=== PATIENT | female | born 1990 | race Caucasian/White ===

== ENCOUNTER 2017-08-14 15:22 | Inpatient (IN) | payer MEDICAID ==
[~2017-08-14] VITALS: Ht 167.6 cm; Wt 75.4 kg
[2017-08-14 15:26] VITALS: BP 120/42
[2017-08-14] MEDS ORDERED: PREN-234 PO (15:31)
[2017-08-14 17:27] LABS: HEMATOCRIT 38.4 % (36-48); HEMOGLOBIN 13.5 g/dL (12.0-16.0); MEAN CORPUSCULAR HEMOGLOBIN 32 pg (27-31); MEAN CORPUSCULAR HGB CONC 35 g/dL (33-37); MEAN CORPUSCULAR VOLUME 90 fL (80-94); PLATELET COUNT (AUTO) 285 K/uL (140-450); RED BLOOD CELL COUNT(AUTO) 4.27 MIL/uL (4.20-5.40); RED CELL DISTRIBUTION WIDTH 12.9 % (11.6-13.7); WHITE BLOOD COUNT (AUTO) 16.2 K/uL (4.8-10.8)
[2017-08-14 17:32] LABS: APPEARANCE,URINE CLEAR (CLEAR); BILIRUBIN,URINE NEGATIVE (NEGATIVE); BLOOD, URINE NEGATIVE (NEGATIVE); COLOR,URINE YELLOW (YELLOW); LEUKOCYTE ESTERASE ,URINE TRACE (NEGATIVE); NITRITE, URINE NEGATIVE (NEGATIVE); UGLUCOSE NEGATIVE (NEGATIVE)
[2017-08-14 17:40] LABS: LYMPHOCYTES % (MANUAL) 6 % (20-46); MONOCYTES % (MANUAL) 6 % (5-12)
[2017-08-14 17:41] LABS: RBC,URINE 0-5 (RARE) /HPF (0-5); WBC,URINE 0-5 (RARE) /HPF (0-5)
[2017-08-14 17:41] LABS: ALBUMIN 3.4 g/dL (3.4-5.0); ANION GAP 13.5 (8-16); CARBON DIOXIDE 25.3 mmol/L (21-32); CREATININE 0.7 mg/dL (0.6-1.3); POTASSIUM 3.8 mmol/L (3.5-5.1); TOTAL BILIRUBIN 0.2 mg/dL (0.0-1.0)
--- NOTE | 2017-08-14 18:44 | NUR ---
PATIENT WAS TAKING TO BED 12
--- NOTE | 2017-08-14 19:00 | NUR ---
PATIENT IS A 26 Y/O FEMALE WHO PRESENTS TO THE ED C/O ABD PAIN. PT STATES, "I AM 13 WEEKS AND MY STOMACH HURTS." PT REPORTS SHARP ABD PAIN THAT DOES NOT RADIATE. PT DENIES CP, SOB, REPORTS NAUSEA/VOMITING DENIES DIARRHEA. PT AAOX4, RR EVEN/UNLABORED. PT REPOSITIONED FOR COMFORT, BED IN LOWEST POSITION. ER MD DR. HERNANDEZ NOTIFIED. WILL CONTINUE TO MONITOR.
--- NOTE | 2017-08-14 19:56 | NUR ---
Ultrasound at bedside.
[2017-08-14] MEDS ORDERED: ACETAMINOPHEN EXTRA STRENGTH 500 MG TAB PO ONE (21:05)
[2017-08-14] MEDS: NACL 0.9% 1,000 ML IV SCH (22:37)
[2017-08-14] MEDS ORDERED: ONDANSETRON 4 MG/2 ML VIAL IVP PRN (22:40)
[2017-08-14] MEDS ORDERED: metroNIDAZOLE 500 MG/NS PREMIX 100 ML IV ONE (22:40)
[2017-08-14] MEDS ORDERED: cefTRIAXone 1,000 MG VIAL ONE (22:51)
--- NOTE | 2017-08-14 23:27 | NUR ---
Patient will be admitted to care of DR. ESTRELLA. Admited to TELE. Will go to room 105B. Belongings list completed. Report to JUAN RAMON NGUYEN.
[2017-08-14 23:30] LABS: BARBITURATE, URINE NEG. ng/ml (NEG <=200); BENZODIAZEPINE, URINE NEG. ng/mL (NEG <=200); CANNABINOID, URINE NEG. ng/mL (NEG <=50); COCAINE, URINE NEG. ng/mL (NEG <=300); OPIATE, URINE NEG. ng/mL (NEG <=2000); PHENCYCLIDINE SCREEN,URINE NEG. ng/mL (NEG <=25)
[2017-08-14 23:32] LABS: PROTHROMBIN TIME 9.8 secs (10.8-13.4)
[2017-08-14 23:55] LABS: CHOL/HDL RATIO 2.7 (1-4.5); FREE T4 (FREE THYROXINE) 0.84 ng/dL (0.76-1.46); MAGNESIUM 1.8 mg/dL (1.8-2.4); PHOSPHORUS 3.9 mg/dL (2.5-4.9); THYROID STIMULATING HORMONE 9.99 uIU/mL (0.34-3.74)
[2017-08-15 01:39] VITALS: BP 108/60
[2017-08-15 04:00] VITALS: BP 103/56
[2017-08-15] MEDS: LEVOTHYROXINE 0.075 MG TAB PO SCH (06:30)
--- NOTE | 2017-08-15 06:46 | NUR ---
PATIENT HAD ON AND OFF PAIN ON RIGHT ABDOMEN DR INFORMED PATIENT IS NPO SHE SAID SHE WILL REVIEW , ZOFRAN 40 MG GIVEN IV FOR NAUSEA NOW SHE IS SETTLED AND SLEEPING.
--- NOTE | 2017-08-15 07:30 | NUR ---
RECEIVED PT IN BED, AWAKE, ALERT ORIENTEDX4. NO SOB NOTED. DR. GONSALVES FOR OB CONSULT WITH PT. PT AMBULATORY. SAFETY PRECAUTION IN PLACE. CALL LIGHT WITHIN REACH.
[2017-08-15 07:34] LABS: BASOPHILS # (AUTO) 0.2 K/uL (0.00-0.22); BASOPHILS % (AUTO) 1.6 % (0.0-2.0); EOSINOPHILS # (AUTO) 0.2 K/uL (0-0.4); EOSINOPHILS % (AUTO) 1.6 % (0.0-4.0); HEMATOCRIT 35.2 % (36-48); LYMPHOCYTES # (AUTO) 1.9 K/uL (2.5-16.5); MEAN CORPUSCULAR HEMOGLOBIN 31 pg (27-31); MEAN CORPUSCULAR HGB CONC 34 g/dL (33-37); MEAN CORPUSCULAR VOLUME 91 fL (80-94); MONOCYTES # (AUTO) 0.3 K/uL (0.8-1.0); MONOCYTES % (AUTO) 3.3 % (1.7-9.3); NEUTROPHILS # (AUTO) 6.9 K/uL (1.8-7.7); NEUTROPHILS % (AUTO) 73.5 % (42.2-75.2); PLATELET COUNT (AUTO) 241 K/uL (140-450); RED BLOOD CELL COUNT(AUTO) 3.88 MIL/uL (4.20-5.40); RED CELL DISTRIBUTION WIDTH 12.8 % (11.6-13.7); WHITE BLOOD COUNT (AUTO) 9.5 K/uL (4.8-10.8)
[2017-08-15 08:00] VITALS: BP 95/56
[2017-08-15 08:01] LABS: ANION GAP 13.4 (8-16); CARBON DIOXIDE 23.1 mmol/L (21-32); CREATININE 0.6 mg/dL (0.6-1.3); POTASSIUM 3.5 mmol/L (3.5-5.1)
[2017-08-15] MEDS: DOCUSATE SODIUM 100 MG GELCAP PO SCH ×2 (08:11→21:05)
[2017-08-15] MEDS: ACETAMINOPHEN 325 MG TAB PO PRN ×2 (08:11→20:58)
[2017-08-15 08:14] LABS: MAGNESIUM 1.8 mg/dL (1.8-2.4)
--- NOTE | 2017-08-15 09:34 | NUR ---
PATIENT HAS BEEN SCREENED AND CATEGORIZED MODERATE NUTRITION RISK. PATIENT WILL BE SEEN WITHIN 3-5 DAYS OF ADMISSION. 08/17/17-08/19/[address]
--- NOTE | 2017-08-15 09:42 | NUR ---
DR. STRATTON CAME TO SEE PT. PT VERBALIZED SHE STILL FEEL PAIN ON HER RIGHT LOWER ABDOMEN. PER DR. STRATTON, HER WBC WENT DOWN, AND SHE DOESN'T HAVE ANY FEVER ANYMORE. DR. STRATTON EXPLAINED TO PT HER OPTIONS, THAT IT IS STILL POSSIBLE THAT PT HAS APPENDICITIS BUT SINCE SHE IS WE CAN'T DO PET SCAN, BECAUSE IT'S NOT SAFE FOR BABY, BUT SHE CAN HAVE MRI WHICH WE DON'T HAVE HERE, TO CONFIRM APPENDICITIS. AND ANOTHER OPTION IS TO HAVE SURGERY NOW WITHOUT CONFIRMING IF ITS APPENDICITIS, WHICH MIGHT BE RISKY TOO FOR THE BABY, OR SHE CAN WAIT A LITTLE BIT MORE IF SYMPTOMS WORSEN OR SUBSIDES. PT DECIDES THAT SHE WOULD WANT TO WAIT BUT SHE WANTS TO GO HOME. DR. STRATTON RECOMMENDED TO FOLLOW UP TO PCP, AND GET MRI CLOSE TO [place] WHERE SHE LIVES.
--- NOTE | 2017-08-15 10:10 | NUR ---
DR. BALBUENA (RESIDENT) MADE AWARE OF CONSULT WITH DR STRATTON. DR. BALBUENA CAME TO SEE PT. EXPLAINED TO PT RISKS OF GOING HOME NOW FOR POSSIBLE RUPTURE OF APPENDIX IF PT REALLY HAS APPENDICITIS, THAT MIGHT LEAD TO COMPLICATIONS, SEPSIS, AND LOSS OF UNBORN CHILD. DR. BALBUENA RECOMMENDED THAT PT STAY ONE MORE DAY AND WILL CONTINUE ASSESSMENT/EVALUATION FOR POSSIBLE APPENDICITIS. ALSO EXPLAINED TO PT THAT IF SHE REALLY WANTS TO GO HOME SHE CAN SIGN AMA, EXPLAINED RISKS AND BENEFITS. PT VERBALIZED UNDERSTANDING. AND DECIDED TO STAY FOR FURTHER OBSERVATION.
--- NOTE | 2017-08-15 10:17 | NUR ---
CALLED LABOR AND DELIVERY SPOKE WITH AGGIE REGARDING THE TAKING OF THE HEART TONE, SHE SAID THAT SHE WILL SEND SOMEONE.
--- NOTE | 2017-08-15 10:36 | NUR ---
HEART TONE WAS AT 150BPM. TAKEN BY CLINICAL INSTRUCTOR
[2017-08-15] MEDS ORDERED: LACTOBACILLUS RHAMNOSUS GG 1 EACH CAP PO SCH (11:05)
[2017-08-15] MEDS ORDERED: CALCIUM CARB/VIT-D 500 MG/200 IU 1 TAB PO SCH (11:05)
[2017-08-15] MEDS: CALCIUM CARB/VIT-D 500 MG/200 IU 1 TAB PO SCH (11:25)
[2017-08-15] MEDS: LACTOBACILLUS RHAMNOSUS GG 1 EACH CAP PO SCH (11:25)
[2017-08-15 11:51] VITALS: BP 93/52
[2017-08-15] MEDS: NACL 0.9% 1,000 ML IV SCH ×2 (12:33→23:50)
[2017-08-15] MEDS ORDERED: metroNIDAZOLE 500 MG/NS PREMIX 100 ML IV SCH (13:00)
[2017-08-15 15:52] VITALS: BP 101/59
[2017-08-15] MEDS ORDERED: BISACODYL 10 MG SUPP RC SCH (16:15)
--- NOTE | 2017-08-15 16:50 | NUR ---
OFFERED PT IF WOULD WANT TO GET THE DULCOLAX SUPP, SINCE SHE COMPLAINS OF NOT HAVING BOWEL MOVEMENT/CONSTIPATION. PT VERBALIZED THAT SHE PREFERS TO PUT IT HERSELF. PROVIDED PT WITH INSTRUCTIONS, MEDICATION AND SOME CLEAN GLOVES. PT VERBALIZED UNDERSTANDING.
--- NOTE | 2017-08-15 18:44 | NUR ---
PT KEPT CLEAN, DRY AND COMFORTABLE. NEEDS ATTENDED, WILL ENDORSE TO NEXT SHIFT, PT ON STABLE CONDITION, FOR CONTINUITY OF CARE.
--- NOTE | 2017-08-15 19:10 | NUR ---
RECEIVED REPORT FROM DAY RN. PATIENT RESTING IN BED, AWAKE ALERT ORIENTED X4, NO S/S OF DISTRESS NOTED, RESPIRATION EVEN AND UNLABORED, IV PATENT AND INTACT, INFUSING NS AT 80ML/HR. CALL LIGHT WITHIN REACH, SAFETY MEASURE ENSURED, WILL CONTINUE TO MONITOR.
[2017-08-15 20:00] VITALS: BP 109/66
--- NOTE | 2017-08-15 21:05 | NUR ---
FLAGYL IS NOT ADMINISTERED, DR. QUIROZ IS AWARE. Addendum: 08/16/17 at 0734 by [place] Sheppard RN PER PHARMACIST GERARDO, THE FLAGYL IS CONTRAINDICATED BECAUSE PATIENT IS 13 WEEKS . AND NURSING DRUG HANDBOOK 2018 ALSO INDICATED THE FLAGYL IS CONTRAINDICATED.
--- NOTE | 2017-08-15 23:05 | NUR ---
HEART RATE 157. PATIENT RESTING IN BED, NO S/S OF DISTRESS NOTED, RESPIRATION EVEN AND UNLABORED, CALL LIGHT WITHIN REACH, SAFETY MEASURE ENSURED, WILL CONTINUE TO MONITOR.
[2017-08-16] VITALS: BP 102/60
--- NOTE | 2017-08-16 01:04 | NUR ---
NO CHANGE IN CONDITION. PATIENT WAS SLEEPING, BUT EASY TO AROUSE, NO S/S OF DISTRESS NOTED, RESPIRATION EVEN AND UNLABORED, CALL LIGHT WITHIN REACH, SAFETY MEASURE ENSURED, WILL CONTINUE TO MONITOR.
--- NOTE | 2017-08-16 03:14 | NUR ---
PATIENT WAS SLEEPING, BUT EASY TO AROUSE, NO S/S OF DISTRESS NOTED, RESPIRATION EVEN AND UNLABORED, CALL LIGHT WITHIN REACH, SAFETY MEASURE ENSURED, WILL CONTINUE TO MONITOR.
[2017-08-16 04:00] VITALS: BP 95/62
[2017-08-16] MEDS: LEVOTHYROXINE 0.075 MG TAB PO SCH (06:10)
[2017-08-16] MEDS ORDERED: metroNIDAZOLE 500 MG/NS PREMIX 100 ML IV SCH ×2 (06:27→13:00)
--- NOTE | 2017-08-16 06:36 | NUR ---
INFORMED DR. BALBUENA THAT PER PHARMACIST GERARDO DREW IS CONTRAINDICATED BECAUSE PATIENT IS [address] W[address] . M[address] BALBUENA AWARE THAT PATIENT IS [address] W[address] , DR BALBUENA SAID," DREW IS CLASS B, SO I WANT YOU TO GIVE IT." Addendum: 08/16/17 at 0652 by [place] Sheppard RN CHARGE NURSE IS ALSO AWARE
[2017-08-16 07:21] LABS: BASOPHILS # (AUTO) 0.2 K/uL (0.00-0.22); BASOPHILS % (AUTO) 2.2 % (0.0-2.0); EOSINOPHILS # (AUTO) 0.2 K/uL (0-0.4); EOSINOPHILS % (AUTO) 2.4 % (0.0-4.0); HEMATOCRIT 33.9 % (36-48); HEMOGLOBIN 11.6 g/dL (12.0-16.0); LYMPHOCYTES % (AUTO) 27.7 % (20.5-51.1); MEAN CORPUSCULAR HEMOGLOBIN 31 pg (27-31); MEAN CORPUSCULAR HGB CONC 34 g/dL (33-37); MEAN CORPUSCULAR VOLUME 92 fL (80-94); MONOCYTES # (AUTO) 0.4 K/uL (0.8-1.0); NEUTROPHILS # (AUTO) 4.4 K/uL (1.8-7.7); NEUTROPHILS % (AUTO) 62.7 % (42.2-75.2); PLATELET COUNT (AUTO) 233 K/uL (140-450); RED BLOOD CELL COUNT(AUTO) 3.71 MIL/uL (4.20-5.40); RED CELL DISTRIBUTION WIDTH 12.9 % (11.6-13.7); WHITE BLOOD COUNT (AUTO) 7.2 K/uL (4.8-10.8)
--- NOTE | 2017-08-16 07:21 | NUR ---
ENDORSED PLAN OF CARE TO DAY RN. PATIENT RESTING IN BED, NO S/S OF DISTRESS NOTED, PATIENT IS IN STABLE CONDITION.
--- NOTE | 2017-08-16 07:22 | NUR ---
RECEIVED PT IN BED. AWAKE. ALERT ORIENTEDX4. NO SOB NOTED. PT AMBULATORY. NO SIGNS AND SYMPTOMS OF ACUTE PAIN OR DISCOMFORT NOTED AT THIS TIME. SAFETY PRECAUTION IN PLACE. CALL LIGHT WITHIN REACH.
[2017-08-16 07:26] LABS: ANION GAP 11.8 (8-16); CARBON DIOXIDE 23.9 mmol/L (21-32); CREATININE 0.6 mg/dL (0.6-1.3); POTASSIUM 3.7 mmol/L (3.5-5.1)
[2017-08-16 07:30] LABS: MAGNESIUM 1.8 mg/dL (1.8-2.4); PHOSPHORUS 3.6 mg/dL (2.5-4.9)
[2017-08-16 08:00] VITALS: BP 111/64
[2017-08-16] MEDS: DOCUSATE SODIUM 100 MG GELCAP PO SCH (08:12)
[2017-08-16] MEDS: CALCIUM CARB/VIT-D 500 MG/200 IU 1 TAB PO SCH (08:12)
[2017-08-16] MEDS: LACTOBACILLUS RHAMNOSUS GG 1 EACH CAP PO SCH (08:13)
--- NOTE | 2017-08-16 10:38 | NUR ---
CALLED [facility] SPOKE WITH PREET FOR THE HEART TONE FOR PT. AWAITING READING.
--- NOTE | 2017-08-16 10:48 | NUR ---
PREET CAME FROM L&D TO TAKE T WITH A READING OF 156BPM.
[2017-08-16 11:57] VITALS: BP 101/50
[2017-08-16] MEDS: NACL 0.9% 1,000 ML IV SCH (12:20)
[2017-08-16] MEDS ORDERED: DOCU-299 PO (13:29)
[2017-08-16] MEDS ORDERED: CEPH250C16 PO (13:29)
[2017-08-16] MEDS ORDERED: SYN.075 PO (13:29)
[2017-08-16] MEDS ORDERED: LACT10CA PO (13:29)
[2017-08-16] MEDS ORDERED: ACET-2619 PO (13:37)
[2017-08-16] MEDS ORDERED: INFLUENZA VIRUS VACCINE QUAD 0.5 ML SYR IMVAC SCH (13:55)
--- NOTE | 2017-08-16 14:05 | NUR ---
CALLED PHARMACY IF INFLUENZA VACCINE IS SAFE FOR . PER IRENE IT IS SAFE. OFFERED PT FLU VACCINE BEFORE DISCHARGE, PT AGREED. DR. BALBUENA , MADE AWARE WITH ORDERS MADE AND CARRIED OUT.
[2017-08-16 14:16] VITALS: BP 104/73
--- NOTE | 2017-08-16 14:42 | NUR ---
DISCHARGE INSTRUCTIONS AND PT INSTRUCTIONS GIVEN AND EXPLAINED TO PT. PT VERBALIZED UNDERSTANDING. NO SOB NOTED. DENIES ANY PAIN OR DISCOMFORT AT THIS TIME. PT SIGNED DISCHARGE PAPERS. PROVIDED A COPY OF DISCHARGE PAPERS. PROVIDED WITH EXCUSE TO WORK PER PT REQUEST FROM MD. ALSO PROVIDED WITH MRI REFERRAL. REMINDED PT TO FOLLOW UP WITH OBGYN DR. GONSALVES FOR A FOLLOW UP APPOINTMENT ON Thursday08/17/2011. PT VERBALIZED UNDERSTANDING. IV CANNULA REMOVED AND INTACT. TELEMONITOR REMOVED. NAME ARMBAND REMOVED. AWAITING MOTHER FOR EFFICIENCY EXPERT.
--- NOTE | 2017-08-16 14:55 | NUR ---
BOYFRIEND OF PT CAME TO BINDERY PRODUCTION MANAGER PT. WHEELED PT GOING OUT TO THE HOSPITAL PARKING LOT TO THEIR PRIVATE OWNED VEHICLE. NO SOB NOTED. DENIES ANY PAIN OR DISCOMFORT AT THIS TIME. REMINDED PT TO FOLLOW UP WITH OBGYN/PCP, FOR A FOLLOW UP APPOINTMENT. PT VERBALIZED UNDERSTANDING. PT DISCHARGED ON A STABLE CONDITION.
== END 2017-08-16 14:55 | disposition home or self-care (01) | DRG 566 ==
LOC: MED 15:22 → MTU 22:40
PROVIDERS: ADMIT Family Medicine Sports Medicine; ATTEND Family Medicine Sports Medicine
PROC: 3E0234Z Introduction of Serum, Toxoid and Vaccine into Muscle, Percutaneous Approach (ICD-10-PCS; principal; 2017-08-16)
DX: O23.41 Unspecified infection of urinary tract in pregnancy, first trimester (principal); O99.111 Other diseases of the blood and blood-forming organs and certain disorders involving the immune mechanism complicating pregnancy, first trimester; O99.611 Diseases of the digestive system complicating pregnancy, first trimester; O99.281 Endocrine, nutritional and metabolic diseases complicating pregnancy, first trimester; K37 Unspecified appendicitis; E03.9 Hypothyroidism, unspecified; E83.51 Hypocalcemia; D72.825 Bandemia; I88.0 Nonspecific mesenteric lymphadenitis; Z3A.13 13 weeks gestation of pregnancy; Z23 Encounter for immunization; Z98.82 Breast implant status
CPT/HCPCS: 36415; 76705; 76801; 80048; 80053; 80305; 81001; 81025; 82150; 83036; 83690; 83735; 83880; 84100; 84439; 84443; 84484; 84702; 85025; 85610; 85730; 87040; 87081; 87086; 90658; 96365; 99285; J0696; J2405; J3490; J7030; J7060; Q0092